=== PATIENT | female | born 1975 | race Caucasian/White ===

== ENCOUNTER 2023-08-27 07:41 | Outpatient (CLI) | payer BC | END 2023-08-27 07:42 | disposition home or self-care (01) | LOC: BICMAMMO 07:41 | PROVIDERS: ATTEND Family Medicine | DX: Z12.31 Encounter for screening mammogram for malignant neoplasm of breast (principal); N63.23 Unspecified lump in the left breast, lower outer quadrant | CPT/HCPCS: 77063; 77067 ==

== ENCOUNTER 2023-08-31 10:53 | Outpatient (CLI) | payer BC | END 2023-08-31 10:54 | disposition home or self-care (01) | LOC: BICULT 10:53 | PROVIDERS: ATTEND Family Medicine | DX: N63.20 Unspecified lump in the left breast, unspecified quadrant (principal) ==